=== PATIENT | female | born 1980 | race Caucasian/White ===

== ENCOUNTER 2017-04-22 13:51 | Emergency (ER) | payer OTHER ==
--- NOTE | 2017-04-22 14:40 | ED ORDER SUMMARY ---
..... Patient: ALPHONSE RADFORD OrderSheet [facility] VisitID: [id number] [address] [place] [address] 36y, F Registration Date/Time: 04/22/2017 ORDER SHEET Weight: 86.6 kg (stated) Allergies: Sulfa Antibiotics GENERAL ORDERS: MEDICATION ORDERS: Valium PO 5 mg (HIGH ALERT MEDICATION, NOW) (14:04 04/22/2017 Ariel P.A.-C) (Ack 14:07 ASchmuck) (14:11 ASchmuck) Hydrocodone-APAP PO 5/325 mg (NOW, HIGH ALERT MEDICATION) (14:04 04/22/2017 Ariel P.A.-C) (Ack 14:07 ASchmuck) (14:11 ASchmuck) IV FLUIDS: ORDER SHEET NOTES: [Electronically signed by Pam WanABlanka-Donaldo (16:16 04/22/2017)] [Electronically signed by Charissa Fernandez (19:01 04/22/2017)] [Electronically locked/signed by Charissa Fernandez (19:04/22/2017)]
--- NOTE | 2017-04-22 14:40 | ED CLINICAL REPORT ---
Clinical Report - Physicians/Mid Levels [facility] [address] [place] [address] 04/22/2017 13:54 Patient: ALPHONSE RADFORD Time Seen: 14:07 Apr 22 2017. Arrived- By private vehicle. HISTORY OF PRESENT ILLNESS Chief Complaint: BACK PAIN. It is still present. No bowel dysfunction. Additional history - Patient recently traveled from [place], moving to the area, was moving a filing cabinet, when she developed sensation of back pain. Reports pain worsening. Pain worsens with movement. Patient reports pain relieved with somewhat of a laying lateral position, with pillow between her legs. ( denies any radiation of pain. Pain worsens with movement.). REVIEW OF SYSTEMS No fever, chills, difficulty with urination, urinary frequency or cough. No vomiting or diarrhea. All systems otherwise negative, except as recorded above. PAST HISTORY Problems: Back Pain. Hypertension. Additional Surgeries: Hernia Repair. Shoulder Surgery. Medications: Control Pills. Claritin Oral. Lisinopril-Hydrochlorothiazide Oral (Tablet 20-12.5 mg) 1 tablet. Allergies: Sulfa Antibiotics. SOCIAL HISTORY Never smoker. No alcohol use or drug use. Not an IV drug user. ADDITIONAL NOTES The nursing notes have been reviewed. PHYSICAL EXAM Vital Signs: 04/22/2017 14:06 BP: 128/95. HR: 96. RR: 17. O2 saturation: 100%. Temp: 98.1 F. Appearance: Alert. No acute distress. Neck: Normal inspection. Neck nontender. CVS: Heart sounds normal. Respiratory: No respiratory distress. Breath sounds normal. Abdomen: No visible injury. Soft. Back: Moderate muscle spasm of the right posterior back. Moderate soft tissue tenderness in the right mid and lower and left mid and lower lumbar area. Neuro: Oriented X 3. Mood/affect normal. PROGRESS AND PROCEDURES Course of Care: There are no risks for spinal epidural abscess or hematoma as patient is without any risk factors such as IVDA or evidence of active infection, no midline tenderness to percussion. Hence I do not feel emergent imaging with an MRI is indicated. However I did discuss with the patient that if these symptoms develop, or if the pain does not resolve an MRI may need to be done outpatient, or in the ED if symptoms worsen acutely or new onset of the above mentioned symptoms develop. 04/22/2017 15:01 BP: 124/79. HR: 89. RR: 15. O2 saturation: 100%. Pain level now: 6/10. Patient is stable. Symptoms better. Patient/family counseled. Disposition: Discharged. CLINICAL IMPRESSION Myofascial strain INSTRUCTIONS Apply ice. Limit lifting. (ice/ heat). Prescription Medications: Valium 2 mg: take 1 orally every 12 hours for 5 days as needed for muscle spasm. Dispense ten (10). No refill. Substitution is permissible. Motrin 800 mg tablets: take 1 tablet orally every 8 hours for 5 days, as needed for pain. Dispense fifteen (15). No refill. Substitution is permissible. Ultram 50 mg: take 1 orally every 8 hours for 5 days, as needed for pain. Dispense fifteen (15). No refills. Follow-up with: Adrian Gilman MD, Family [facility], , [facility], [address] [place] [address] Follow up. Call for the next available appointment. (Electronically signed by Pam Wan P.A.-C 04/22/2017 16:16)
--- NOTE | 2017-04-22 14:40 | ED NURSING NOTES ---
Clinical Report - Nurses [facility] [address] [place] [address] 04/22/2017 13:54 Patient: ALPHONSE RADFORD TRIAGE Triage time 14:00 Apr 22 2017. Acuity: LEVEL 4. Chief Complaint: BACK PAIN. 14:04/22/17. Alert. No acute distress. SEPSIS SCREEN: Sepsis Screen. Negative (no infection suspected/documented). MIRACLE COMA SCORE: Miracle Coma Scale: 15- eyes open spontaneously (4); best verbal response- oriented x 4 (5); best motor response- obeys commands (6). --14:06 Charissa Fernandez 14:04/22/17. BP: 128/95. HR: 96. RR: 17. O2 saturation: 100%. Temp: 98.1 F. Pain level now 8/10. --14:06 Charissa Fernandez. Weight: 86.6 kg stated. Height/Length: 70 inches Per Patient. BMI: 27.4. --14:03 Charissa Fernandez. Medications Lisinopril-Hydrochlorothiazide Oral (Tablet 20-12.5 mg) 1 tablet. --14:05 Charissa Fernandez Claritin Oral. --14:05 Charissa Fernandez Control Pills. --14:05 Cahrissa Fernandez. Medication/allergy information source: the patient. --14:06 Charissa Fernandez. Allergies Sulfa Antibiotics. --14:03 Charissa Fernandez. History Arrived by private vehicle. Historian: patient. Accompanied by friend. No primary care physician. This started today. ( Pt reports that she was moving and lifting heavy boxes. States the pain started when she was putting the box down. Has past back injuries (injures back once or twice a year). Pain on the right side of back down the right leg. Pt has injection site pain from labor and delivery from 3 years ago.). She has had trouble walking and extremity pain. History of recent trauma- lifting injury. Occurred at home. No numbness, weakness or tingling. 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 (icy hot). PAST MEDICAL HX: Hypertension. No history of diabetes mellitus, heart disease or lung disease. Immunizations: up-to-date. Last normal menstrual period was 2 weeks ago. SOCIAL HX: Never smoker. No alcohol use or drug use. FALL RISK ASSESSMENT: Fall risk assessment completed. No fall risk identified. NUTRITIONAL RISK ASSESSMENT: The nutritional risk assessment revealed no deficiencies. FUNCTIONAL ASSESSMENT: Functional assessment: no impairments noted. LEARNING NEEDS ASSESSMENT: The learning needs assessment revealed no barriers. SKIN INTEGRITY ASSESSMENT: Skin integrity risk assessment completed. No skin integrity risk identified. --14: Charissa Fernandez. PROBLEMS: Back Pain. --14: Charissa Fernandez. ADDITIONAL SURGERIES: Hernia Repair. Shoulder Surgery. --14: Charissa Fernandez. Assessment The patient states feels the same. --14: Charissa Fernandez. Interventions ID band on patient. --14: Charissa Fernandez. PHYSICAL ASSESSMENT 14:04/22/17. Ambulatory to room. Patient gowned. GENERAL / NEURO / PSYCH: Alert. Oriented X 4. Appears in no acute distress. RESPIRATORY: Respirations not labored. Chest nontender. CVS: Capillary refill less than 2 seconds. GI / : Abdomen soft and nontender. EXTREMITIES: Sensation intact in extremities. ROM of extremities within normal limits. BACK: Soft tissue tenderness in the right lumbar paraspinous region. --14: Charissa Fernandez. NURSING PROGRESS NOTES 14:04/22/17. The plan of care for this patient has been created. Neuro-vascular extremity check. Head of bed elevated. Reassurance given. Two patient identifiers checked. Call light placed in reach. Side rails up x 1. Bed placed in lowest position. Brakes of bed on. Patient ready for evaluation- chart flagged and ED physician and PA notified. --14: Charissa Fernandez 14:04/22/2017 Valium (Diazepam) PO Tablets 5 mg given. Allergies verified, confirmed 5 rights and sedative warning given to the patient. --14: Charissa Fernandez 14:11 04/22/2017 Hydrocodone-APAP (Hydrocodone-Acetaminophen) PO 5/325 mg Tablets 1 tab given. Allergies verified, confirmed 5 rights and sedative warning given to the patient. --14:11 Charissa Fernandez. DISPOSITION / DISCHARGE Departure time: 1454. Condition at departure: improved. No learning barriers present. Discharge instructions provided and reviewed with the patient. Reviewed medication(s) side effects and course information. Prescription(s) given to the patient. Patient verbalized understanding. Written instructions provided in Romanian. The patient was discharged by the physician metal forger's assistant. She was discharged home and accompanied by family. She left the Emergency Department ambulatory and via private vehicle. Family member driving. ( pt reports improvement in pain since presentation, "I can take a deep breath finally"). --15:03 Peyton José R.N. 15:01 04/22/17. BP: 124/79. HR: 89. RR: 15. O2 saturation: 100%. Temp: deferred. Pain level now: 03/26. --15:03 Peyton José R.N. Locked/Released at 04/22/2017 19:01 by Charissa Fernandez,
--- NOTE | 2017-04-22 14:40 | ED CLINICAL REPORT ---
Clinical Report - Physicians/Mid Levels [facility] [address] [place] [address] 04/22/2017 13:54 Patient: ALPHONSE RADFORD Time Seen: 14:07 Apr 22 2017. Arrived- By private vehicle. HISTORY OF PRESENT ILLNESS Chief Complaint: BACK PAIN. It is still present. No bowel dysfunction. Additional history - Patient recently traveled from [place], moving to the area, was moving a filing cabinet, when she developed sensation of back pain. Reports pain worsening. Pain worsens with movement. Patient reports pain relieved with somewhat of a laying lateral position, with pillow between her legs. ( denies any radiation of pain. Pain worsens with movement.). REVIEW OF SYSTEMS No fever, chills, difficulty with urination, urinary frequency or cough. No vomiting or diarrhea. All systems otherwise negative, except as recorded above. PAST HISTORY Problems: Back Pain. Hypertension. Additional Surgeries: Hernia Repair. Shoulder Surgery. Medications: Control Pills. Claritin Oral. Lisinopril-Hydrochlorothiazide Oral (Tablet 20-12.5 mg) 1 tablet. Allergies: Sulfa Antibiotics. SOCIAL HISTORY Never smoker. No alcohol use or drug use. Not an IV drug user. ADDITIONAL NOTES The nursing notes have been reviewed. PHYSICAL EXAM Vital Signs: 04/22/2017 14:06 BP: 128/95. HR: 96. RR: 17. O2 saturation: 100%. Temp: 98.1 F. Appearance: Alert. No acute distress. Neck: Normal inspection. Neck nontender. CVS: Heart sounds normal. Respiratory: No respiratory distress. Breath sounds normal. Abdomen: No visible injury. Soft. Back: Moderate muscle spasm of the right posterior back. Moderate soft tissue tenderness in the right mid and lower and left mid and lower lumbar area. Neuro: Oriented X 3. Mood/affect normal. PROGRESS AND PROCEDURES Course of Care: There are no risks for spinal epidural abscess or hematoma as patient is without any risk factors such as IVDA or evidence of active infection, no midline tenderness to percussion. Hence I do not feel emergent imaging with an MRI is indicated. However I did discuss with the patient that if these symptoms develop, or if the pain does not resolve an MRI may need to be done outpatient, or in the ED if symptoms worsen acutely or new onset of the above mentioned symptoms develop. 04/22/2017 15:01 BP: 124/79. HR: 89. RR: 15. O2 saturation: 100%. Pain level now: 6/10. Patient is stable. Symptoms better. Patient/family counseled. Disposition: Discharged. CLINICAL IMPRESSION Myofascial strain INSTRUCTIONS Apply ice. Limit lifting. (ice/ heat). Prescription Medications: Valium 2 mg: take 1 orally every 12 hours for 5 days as needed for muscle spasm. Dispense ten (10). No refill. Substitution is permissible. Motrin 800 mg tablets: take 1 tablet orally every 8 hours for 5 days, as needed for pain. Dispense fifteen (15). No refill. Substitution is permissible. Ultram 50 mg: take 1 orally every 8 hours for 5 days, as needed for pain. Dispense fifteen (15). No refills. Follow-up with: Adrian Gilman MD, Family [facility], , [facility], [address] [place] [address] Follow up. Call for the next available appointment. (Electronically signed by Pam Wan P.A.-C 04/22/2017 16:16)
--- NOTE | 2017-04-22 14:40 | ED NURSING NOTES ---
Clinical Report - Nurses [facility] [address] [place] [address] 04/22/2017 13:54 Patient: ALPHONSE RADFORD TRIAGE Triage time 14:00 Apr 22 2017. Acuity: LEVEL 4. Chief Complaint: BACK PAIN. 14:04/22/17. Alert. No acute distress. SEPSIS SCREEN: Sepsis Screen. Negative (no infection suspected/documented). MIRACLE COMA SCORE: Miracle Coma Scale: 15- eyes open spontaneously (4); best verbal response- oriented x 4 (5); best motor response- obeys commands (6). --14:06 Charissa Fernandez 14:04/22/17. BP: 128/95. HR: 96. RR: 17. O2 saturation: 100%. Temp: 98.1 F. Pain level now 8/10. --14:06 Charissa Fernandez. Weight: 86.6 kg stated. Height/Length: 70 inches Per Patient. BMI: 27.4. --14:03 Charissa Fernandez. Medications Lisinopril-Hydrochlorothiazide Oral (Tablet 20-12.5 mg) 1 tablet. --14:05 Charissa Fernandez Claritin Oral. --14:05 Charissa Fernandez Control Pills. --14:05 Charissa Fernandez. Medication/allergy information source: the patient. --14:06 Charissa Fernandez. Allergies Sulfa Antibiotics. --14:03 Charissa Fernandez. History Arrived by private vehicle. Historian: patient. Accompanied by friend. No primary care physician. This started today. ( Pt reports that she was moving and lifting heavy boxes. States the pain started when she was putting the box down. Has past back injuries (injures back once or twice a year). Pain on the right side of back down the right leg. Pt has injection site pain from labor and delivery from 3 years ago.). She has had trouble walking and extremity pain. History of recent trauma- lifting injury. Occurred at home. No numbness, weakness or tingling. 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 (icy hot). PAST MEDICAL HX: Hypertension. No history of diabetes mellitus, heart disease or lung disease. Immunizations: up-to-date. Last normal menstrual period was 2 weeks ago. SOCIAL HX: Never smoker. No alcohol use or drug use. FALL RISK ASSESSMENT: Fall risk assessment completed. No fall risk identified. NUTRITIONAL RISK ASSESSMENT: The nutritional risk assessment revealed no deficiencies. FUNCTIONAL ASSESSMENT: Functional assessment: no impairments noted. LEARNING NEEDS ASSESSMENT: The learning needs assessment revealed no barriers. SKIN INTEGRITY ASSESSMENT: Skin integrity risk assessment completed. No skin integrity risk identified. --14: Charissa Fernandez. PROBLEMS: Back Pain. --14: Charissa Fernandez. ADDITIONAL SURGERIES: Hernia Repair. Shoulder Surgery. --14: Charissa Fernandez. Assessment The patient states feels the same. --14: Charissa Fernandez. Interventions ID band on patient. --14: Charissa Fernandez. PHYSICAL ASSESSMENT 14:04/22/17. Ambulatory to room. Patient gowned. GENERAL / NEURO / PSYCH: Alert. Oriented X 4. Appears in no acute distress. RESPIRATORY: Respirations not labored. Chest nontender. CVS: Capillary refill less than 2 seconds. GI / : Abdomen soft and nontender. EXTREMITIES: Sensation intact in extremities. ROM of extremities within normal limits. BACK: Soft tissue tenderness in the right lumbar paraspinous region. --14: Charissa Fernandez. NURSING PROGRESS NOTES 14:04/22/17. The plan of care for this patient has been created. Neuro-vascular extremity check. Head of bed elevated. Reassurance given. Two patient identifiers checked. Call light placed in reach. Side rails up x 1. Bed placed in lowest position. Brakes of bed on. Patient ready for evaluation- chart flagged and ED physician and PA notified. --14: Charissa Fernandez 14:04/22/2017 Valium (Diazepam) PO Tablets 5 mg given. Allergies verified, confirmed 5 rights and sedative warning given to the patient. --14: Charissa Fernandez 14:11 04/22/2017 Hydrocodone-APAP (Hydrocodone-Acetaminophen) PO 5/325 mg Tablets 1 tab given. Allergies verified, confirmed 5 rights and sedative warning given to the patient. --14:11 Charissa Fernandez. DISPOSITION / DISCHARGE Departure time: 1454. Condition at departure: improved. No learning barriers present. Discharge instructions provided and reviewed with the patient. Reviewed medication(s) side effects and course information. Prescription(s) given to the patient. Patient verbalized understanding. Written instructions provided in Telugu. The patient was discharged by the physician junior administrative assistant. She was discharged home and accompanied by family. She left the Emergency Department ambulatory and via private vehicle. Family member driving. ( pt reports improvement in pain since presentation, "I can take a deep breath finally"). --15:03 Peyton José R.N. 15:01 04/22/17. BP: 124/79. HR: 89. RR: 15. O2 saturation: 100%. Temp: deferred. Pain level now: 03/26. --15:03 Peyton José R.N. Locked/Released at 04/22/2017 19:01 by Charissa Fernandez,
--- NOTE | 2017-04-22 14:40 | ED ORDER SUMMARY ---
..... Patient: ALPHONSE RADFORD OrderSheet [facility] VisitID: [id number] [address] [place] [address] 36y, F Registration Date/Time: 04/22/2017 ORDER SHEET Weight: 86.6 kg (stated) Allergies: Sulfa Antibiotics GENERAL ORDERS: MEDICATION ORDERS: Valium PO 5 mg (HIGH ALERT MEDICATION, NOW) (14:04 04/22/2017 Ariel P.A.-C) (Ack 14:07 ASchmuck) (14:11 ASchmuck) Hydrocodone-APAP PO 5/325 mg (NOW, HIGH ALERT MEDICATION) (14:04 04/22/2017 Ariel P.A.-C) (Ack 14:07 ASchmuck) (14:11 ASchmuck) IV FLUIDS: ORDER SHEET NOTES: [Electronically signed by Pam WanABlanka-Donaldo (16:16 04/22/2017)] [Electronically signed by Charissa Fernandez (19:01 04/22/2017)] [Electronically locked/signed by Charissa Fernandez (19:04/22/2017)]
--- NOTE | 2017-04-22 19:01 | ED DISCHARGE INSTRUCTIONS ---
Patient: ALPHONSE RADFORD General Instructions [facility] VisitID: [id number] [place] [address] 36y, F Registration Date/Time: 04/22/2017 Myofascial strain INSTRUCTIONS Apply ice. Limit lifting. (ice/ heat). Prescription Medications: Valium 2 mg: take 1 orally every 12 hours for 5 days as needed for muscle spasm. Dispense ten (10). No refill. Substitution is permissible. Motrin 800 mg tablets: take 1 tablet orally every 8 hours for 5 days, as needed for pain. Dispense fifteen (15). No refill. Substitution is permissible. Ultram 50 mg: take 1 orally every 8 hours for 5 days, as needed for pain. Dispense fifteen (15). No refills. Follow-up with: Adrian Gilman MD, [facility], , [facility], [place], [address] [place] [address] Follow up. Call for the next available appointment. ADDITIONAL INFORMATION Back Pain [Acute Or Chronic] Back pain is usually caused by an injury to the muscles or ligaments of the spine. Sometimes the disks that separate each bone in the spine may bulge and cause pain by pressing on a nearby nerve. Back pain may also appear after a sudden twisting/bending force (such as in a car accident), after a simple awkward movement, or lifting something heavy with poor body positioning. In either case, muscle spasm is often present and adds to the pain. Acute back pain usually gets better in one to two weeks. Back pain related to disk disease, arthritis in the spinal joints or spinal stenosis (narrowing of the spinal canal) can become chronic and last for months or years. Unless you had a physical injury (for example, a car accident or fall) X-rays are usually not ordered for the initial evaluation of back pain. If pain continues and does not respond to medical treatment, x-rays and other tests may be performed at a later time. Home Care: You may need to stay in bed the first few days. But, as soon as possible, begin sitting or walking to avoid problems with prolonged bed rest (muscle weakness, worsening back stiffness and pain, blood clots in the legs). When in bed, try to find a position of comfort. A firm mattress is best. Try lying flat on your back with pillows under your knees. You can also try lying on your side with your knees bent up towards your chest and a pillow between your knees. Avoid prolonged sitting. This puts more stress on the lower back than standing or walking. During the first two days after injury, apply an ICE PACK to the painful area for 20 minutes every 2-4 hours. This will reduce swelling and pain. HEAT (hot shower, hot bath or heating pad) works well for muscle spasm. You can start with ice, then switch to heat after two days. Some patients feel best alternating ice and heat treatments. Use the one method that feels the best to you. You may use acetaminophen (Tylenol) or ibuprofen (Motrin, Advil) to control pain, unless another pain medicine was prescribed. [NOTE: If you have chronic liver or kidney disease or ever had a stomach ulcer or GI bleeding, talk with your doctor before using these medicines.] Be aware of safe lifting methods and do not lift anything over 15 pounds until all the pain is gone. Follow Up with your doctor or this facility if your symptoms do not start to improve after one week. Physical therapy may be needed. [NOTE: If X-rays were taken, they will be reviewed by a radiologist. You will be notified of any new findings that may affect your care.] Get Prompt Medical Attention if any of the following occur: Pain becomes worse or spreads to your legs Weakness or numbness in one or both legs Loss of bowel or bladder control Numbness in the groin or genital area You have been given the following additional information: Back Pain (Acute Or Chronic) Limit lifting. (Electronically signed by Pam Wan P.A.-C 04/22/2017 16:16)
--- NOTE | 2017-04-22 19:01 | ED MAR SUMMARY ---
..... Medication Administration Record [facility] [address] [place] [address] Patient: ALPHONSE RADFORD Visit ID: [id number] 36y, F Weight: 86.6 kg Height/Length: 70 in BMI: 27.4 ALLERGIES: Sulfa Antibiotics Given 14:04/22/2017 Charissa Fernandez, Medication Administered: VALIUM [PO] (DIAZEPAM), Dose: 5 mg Tablets PO. Medication Ordered: Valium PO 5 mg (HIGH ALERT MEDICATION, NOW). Given 14:04/22/2017 Charissa Fernandez, Medication Administered: HYDROCODONE-APAP [PO] (HYDROCODONE-ACETAMINOPHEN), Dose: 1 tab 5/325 mg Tablets PO. Medication Ordered: Hydrocodone-APAP PO 5/325 mg (NOW, HIGH ALERT MEDICATION).
--- NOTE | 2017-04-22 19:01 | ED DISCHARGE INSTRUCTIONS ---
Patient: ALPHONSE RADFORD General Instructions [facility] VisitID: [id number] [place] [address] 36y, F Registration Date/Time: 04/22/2017 Myofascial strain INSTRUCTIONS Apply ice. Limit lifting. (ice/ heat). Prescription Medications: Valium 2 mg: take 1 orally every 12 hours for 5 days as needed for muscle spasm. Dispense ten (10). No refill. Substitution is permissible. Motrin 800 mg tablets: take 1 tablet orally every 8 hours for 5 days, as needed for pain. Dispense fifteen (15). No refill. Substitution is permissible. Ultram 50 mg: take 1 orally every 8 hours for 5 days, as needed for pain. Dispense fifteen (15). No refills. Follow-up with: Adrian Gilman MD, [facility], , [facility], [address] [place] [address] Follow up. Call for the next available appointment. ADDITIONAL INFORMATION Back Pain [Acute Or Chronic] Back pain is usually caused by an injury to the muscles or ligaments of the spine. Sometimes the disks that separate each bone in the spine may bulge and cause pain by pressing on a nearby nerve. Back pain may also appear after a sudden twisting/bending force (such as in a car accident), after a simple awkward movement, or lifting something heavy with poor body positioning. In either case, muscle spasm is often present and adds to the pain. Acute back pain usually gets better in one to two weeks. Back pain related to disk disease, arthritis in the spinal joints or spinal stenosis (narrowing of the spinal canal) can become chronic and last for months or years. Unless you had a physical injury (for example, a car accident or fall) X-rays are usually not ordered for the initial evaluation of back pain. If pain continues and does not respond to medical treatment, x-rays and other tests may be performed at a later time. Home Care: You may need to stay in bed the first few days. But, as soon as possible, begin sitting or walking to avoid problems with prolonged bed rest (muscle weakness, worsening back stiffness and pain, blood clots in the legs). When in bed, try to find a position of comfort. A firm mattress is best. Try lying flat on your back with pillows under your knees. You can also try lying on your side with your knees bent up towards your chest and a pillow between your knees. Avoid prolonged sitting. This puts more stress on the lower back than standing or walking. During the first two days after injury, apply an ICE PACK to the painful area for 20 minutes every 2-4 hours. This will reduce swelling and pain. HEAT (hot shower, hot bath or heating pad) works well for muscle spasm. You can start with ice, then switch to heat after two days. Some patients feel best alternating ice and heat treatments. Use the one method that feels the best to you. You may use acetaminophen (Tylenol) or ibuprofen (Motrin, Advil) to control pain, unless another pain medicine was prescribed. [NOTE: If you have chronic liver or kidney disease or ever had a stomach ulcer or GI bleeding, talk with your doctor before using these medicines.] Be aware of safe lifting methods and do not lift anything over 15 pounds until all the pain is gone. Follow Up with your doctor or this facility if your symptoms do not start to improve after one week. Physical therapy may be needed. [NOTE: If X-rays were taken, they will be reviewed by a radiologist. You will be notified of any new findings that may affect your care.] Get Prompt Medical Attention if any of the following occur: Pain becomes worse or spreads to your legs Weakness or numbness in one or both legs Loss of bowel or bladder control Numbness in the groin or genital area You have been given the following additional information: Back Pain (Acute Or Chronic) Limit lifting. (Electronically signed by Pam Wan P.A.-C 04/22/2017 16:16)
--- NOTE | 2017-04-22 19:01 | ED MAR SUMMARY ---
..... Medication Administration Record [facility] [address] [place] [address] Patient: ALPHONSE RADFORD Visit ID: [id number] 36y, F Weight: 86.6 kg Height/Length: 70 in BMI: 27.4 ALLERGIES: Sulfa Antibiotics Given 14:04/22/2017 Charissa Fernandez, Medication Administered: VALIUM [PO] (DIAZEPAM), Dose: 5 mg Tablets PO. Medication Ordered: Valium PO 5 mg (HIGH ALERT MEDICATION, NOW). Given 14:04/22/2017 Charissa Fernandez, Medication Administered: HYDROCODONE-APAP [PO] (HYDROCODONE-ACETAMINOPHEN), Dose: 1 tab 5/325 mg Tablets PO. Medication Ordered: Hydrocodone-APAP PO 5/325 mg (NOW, HIGH ALERT MEDICATION).
--- NOTE | 2017-04-22 19:02 | ED MED RECONCILIATION SUMMARY ---
Patient: ALPHONSE RADFORD Medication Reconciliation Report [facility] VisitID: [id number] [address] [place] [address] 36y, F Registration Date/Time: 04/22/2017 Weight: 86.6 kg Height/Length: 70 in. BMI: 27.4 ALLERGIES: Sulfa Antibiotics The patient's Home Medications are listed below: THE FOLLOWING MEDICATIONS NEED TO BE RECONCILED: Control Pills Claritin Oral Lisinopril-Hydrochlorothiazide Oral (20-12.5 mg) 1 tablet The source(s) of the original Home Medication information: patient The following Medications were given to the patient in the Emergency Department: Valium [PO] PO 5 mg, administered: 04/22/2017 2:11:00 PM Hydrocodone-APAP [PO] PO 1 tab, administered: 04/22/2017 2:11:00 PM The following Medications were prescribed to the patient: Valium 2 mg: take 1 orally every 12 hours for 5 days as needed for muscle spasm. Dispense ten (10). No refill. Substitution is permissible. -- Pam Wan, P.A.-C Motrin 800 mg tablets: take 1 tablet orally every 8 hours for 5 days, as needed for pain. Dispense fifteen (15). No refill. Substitution is permissible. -- Pam Wan, P.A.-C Ultram 50 mg: take 1 orally every 8 hours for 5 days, as needed for pain. Dispense fifteen (15). No refills. -- Pam Wan, P.A.-C
--- NOTE | 2017-04-22 19:02 | ED MED RECONCILIATION SUMMARY ---
Patient: ALPHONSE RADFORD Medication Reconciliation Report [facility] VisitID: [id number] [address] [place] [address] 36y, F Registration Date/Time: 04/22/2017 Weight: 86.6 kg Height/Length: 70 in. BMI: 27.4 ALLERGIES: Sulfa Antibiotics The patient's Home Medications are listed below: THE FOLLOWING MEDICATIONS NEED TO BE RECONCILED: Control Pills Claritin Oral Lisinopril-Hydrochlorothiazide Oral (20-12.5 mg) 1 tablet The source(s) of the original Home Medication information: patient The following Medications were given to the patient in the Emergency Department: Valium [PO] PO 5 mg, administered: 04/22/2017 2:11:00 PM Hydrocodone-APAP [PO] PO 1 tab, administered: 04/22/2017 2:11:00 PM The following Medications were prescribed to the patient: Valium 2 mg: take 1 orally every 12 hours for 5 days as needed for muscle spasm. Dispense ten (10). No refill. Substitution is permissible. -- Pam Wan, P.A.-C Motrin 800 mg tablets: take 1 tablet orally every 8 hours for 5 days, as needed for pain. Dispense fifteen (15). No refill. Substitution is permissible. -- Pam Wan, P.A.-C Ultram 50 mg: take 1 orally every 8 hours for 5 days, as needed for pain. Dispense fifteen (15). No refills. -- Pam Wan, P.A.-C
== END 2017-04-22 14:54 | disposition home or self-care (01) ==
LOC: ED SRH 13:51
DX: S39.012A Strain of muscle, fascia and tendon of lower back, initial encounter (principal); X50.0XXA Overexertion from strenuous movement or load, initial encounter; Y93.89 Activity, other specified; Y92.019 Unspecified place in single-family (private) house as the place of occurrence of the external cause; Y99.8 Other external cause status; I10 Essential (primary) hypertension; Z79.899 Other long term (current) drug therapy; Z88.2 Allergy status to sulfonamides